=== PATIENT | male | born 1980 | race Caucasian/White ===

== ENCOUNTER 2017-02-22 16:35 | Emergency (ER) | payer OTHER ==
[2017-02-22 17:40] LABS: BASOPHIL# 0.1 X10e3 (0-0.3); BASOPHIL% 0.7 % (0-2.5); EOSINOPHIL# 0.2 X10e3 (0-0.7); EOSINOPHIL% 2.3 % (0.0-7.0); HEMATOCRIT 45.5 % (38.0-50.0); HEMOGLOBIN 15.2 gm/dL (13.0-16.0); LYMPHOCYTE# 1.6 X10e3 (1.0-3.5); LYMPHOCYTE% 21.7 % (17.0-45.0); MEAN CELL VOLUME 92.8 FL (83-96); MEAN CORPUSCULAR HGB CONC 33.4 g/dL (30-36); MEAN PLATELET VOLUME 9.3 FL (6.5-11.5); MONOCYTE# 0.4 X10e3 (0-1.0); MONOCYTE% 5.9 % (3.0-12.0); NEUTROPHIL# 5.2 X10e3 (1.5-7.1); NEUTROPHIL% 69.4 % (40-75); PLATELET COUNT 200 X10e3 (140-420); RED CELL DISTRIBUTION WIDTH 13.8 % (11.0-15.5); WHITE BLOOD COUNT 7.5 X10e3 (4.0-10.5)
[2017-02-22 17:44] LABS: DIFF IND NO
[2017-02-22 17:59] LABS: ALBUMIN SERUM 4.5 g/dL (3.5-5.0); ALKALINE PHOSPHATASE 49 U/L (32-92); ALT (SGPT) 38 U/L (10-40); AST (SGOT) 38 U/L (10-42); BILIRUBIN, DIRECT 0.1 mg/dL (0.0-0.2); BILIRUBIN,INDIRECT 0.8 mg/dL (0.0-0.9); BILIRUBIN,TOTAL 0.9 mg/dL (0.2-2.0); BLOOD UREA NITROGEN 9 mg/dL (9-23); CARBON DIOXIDE 25 mmol/L (22-31); CHLORIDE 105 mmol/L (100-111); CREATININE SERUM 0.9 mg/dL (0.6-1.4); GLUCOSE FASTING 96 mg/dL (70-110); POTASSIUM 3.8 mmol/L (3.5-5.1); PROTEIN TOTAL SERUM 7.2 g/dL (6.0-8.3); SALICYLATE <4.0 mg/dL; SODIUM 139 mmol/L (135-145)
[2017-02-22 18:00] LABS: ACETAMINOPHEN <10 ug/mL; ALCOHOL BLOOD <5 mg/dL ([, 0])
== END 2017-02-23 00:02 ==
LOC: CED 16:35
PROVIDERS: Emergency Medicine
DX: F32.9 Major depressive disorder, single episode, unspecified (principal); R45.851 Suicidal ideations
CPT/HCPCS: 36415; 80048; 80076; 85025; 99283; G0480

== ENCOUNTER 2017-02-23 00:40 | Inpatient (IN) | payer OTHER ==
--- NOTE | ~2017-02-23 | PN ---
Unit #: [id number] #: [id number] Patient: SHANNAN TEE [id number] [facility] [address] [place] [address] [id number] MR#: [id number] NAME: SHANNAN TEE ROOM: P256 Age: 36 Sex: M Admission Date: 02/23/2017 : 1980 Attending Physician: Rodriguez Corrigan M.D. Admitting Physician: Rodriguez Corrigan M.D. Primary Care Physician: Irving Stephenson PROGRESS NOTES DATE 02/24/2017 DISCUSSION The patient seems a bit brighter today but reports that he felt a bit disoriented and dizzy this morning after having taking trazodone for sleep last night. He is complaining of ongoing poor sleep. He reports some reduction in suicidal ideation when seen today and does express interest in the intensive outpatient treatment following discharge. We are watching for any signs of alcohol withdrawal at this point the patient declines recommendation that he move to as chemical dependence treatment unit but referral to a dual treatment program may be considered once the patient is discharged. Dictated by... Rodriguez Corrigan M.D. CB/agueda TD: 02/25/2017 01:24 JOB #: [id number] [facility] PROGRESS NOTES Page 1 of 1 X Rodriguez Corrigan MD X PROGRESS NOTE
--- NOTE | ~2017-02-23 | DS ---
Unit #: [id number] #: [id number] Patient: SHANNAN TEE [id number] [place] [address] [id number] MR#: [id number] NAME: SHANNAN TEE ROOM: [facility] Age: 36 Sex: M Admission Date: 02/23/2017 : 1980 Discharge Date: 02/26/2017 Attending Physician: Rodriguez Corrigan M.D. Primary Care Physician: Shira Noe M.D. DISCHARGE SUMMARY REASON FOR ADMISSION The patient is a 36-year-old white male, admitted to the [facility] unit with increasing depression and suicidal ideation. HOSPITAL COURSE The patient was admitted to the 2[facility] unit and started on Lexapro 10 mg daily. He tolerated the medication without complaint of poor sleep. Desyrel 50 mg at h.s. p.r.n. insomnia was added. The patient was watched for signs or symptoms of alcohol withdrawal and was in fact placed on routine detoxification protocol, though his detox was an uneventful one. He was active within the therapeutic milieu and by 02/26/2017 was in much brighter spirits. He and his had reconciled and he was agreeable with plan for followup in the dual track intensive outpatient program. Discharge was ordered. FINAL DIAGNOSES Major depressive disorder, single episode, moderate; cannabis use disorder; alcohol use disorder. DISPOSITION ON DISCHARGE The patient is discharged on the following medications; trazodone 50 mg at h.s. p.r.n. insomnia and Lexapro 10 mg daily for depression. DISCHARGE INSTRUCTIONS No dietary or physical restrictions were placed on the patient at the time of discharge. FOLLOWUP He will follow in the dual track intensive outpatient program provided by this facility. PROGNOSIS His prognosis is considered good, but will be darkened considerably should he continue to abuse alcohol. Dictated by... Rodriguez Corrigan M.D. CB/celeste TD: 02/27/2017 01:04 JOB #: [id number] Unit #: [id number] #: [id number] Patient: SHANNAN TEE DISCHARGE SUMMARY Page 1 of 1 X Rodriguez Corrigan MD DISCHARGE SUMMARY
--- NOTE | ~2017-02-23 | PN ---
Unit #: [id number] #: [id number] Patient: SHANNAN TEE [id number] [facility] [address] [place] [address] [id number] I MR#: [id number] NAME: SHANNAN TEE ROOM: P256 Age: 36 Sex: M Admission Date: 02/23/2017 : 1980 Attending Physician: Rodriguez Corrigan M.D. Admitting Physician: Rodriguez Corrigan M.D. Primary Care Physician: Irving Stephenson PROGRESS NOTES DATE 02/25/2017 DISCUSSION The patient continues to complain of some shakiness which he attributes to withdrawal from alcohol. He is otherwise in brighter spirits but states he continues to feel "not stable enough" to go home. We will watch for one more day. He states that he and his have gone a long way towards reconciliation. Dictated by... Rodriguez Corrigan M.D. CB/agueda TD: 02/25/2017 23:24 JOB #: [id number] [facility] PROGRESS NOTES Page 1 of 1 X Rodriguez Corrigan MD X PROGRESS NOTE
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
[2017-02-25 09:43] LABS: URINE APPEARANCE CLEAR; URINE BILIRUBIN NEG (NEG); URINE BLOOD NEG (NEG); URINE COLOR DK YELLOW; URINE GLUCOSE NEG (NEG); URINE KETONE NEG (NEG); URINE LEUKOCYTE ESTERASE NEG (NEG); URINE NITRATE NEG (NEG); URINE PROTEIN NEG (NEG); URINE SPECIFIC GRAVITY 1.017 (1.003-1.035); URINE UROBILINOGEN 0.2 MG/DL (NEG)
[2017-02-25 10:26] LABS: AMPHETAMINE NEG (NEG); BARBITURATES NEG (NEG); BENZODIAZEPINES POS (NEG); COCAINE NEG (NEG); MARIJUANA POS (NEG); OPIATES NEG (NEG); TRICYCLIC ANTIDEPRESSANTS NEG (NEG); U METHADONE NEG (NEG)
== END 2017-02-26 15:30 | disposition home or self-care (01) | DRG 885 ==
LOC: P2L 00:40
PROVIDERS: Specialist
DX: F32.1 Major depressive disorder, single episode, moderate (principal); R45.851 Suicidal ideations; F12.10 Cannabis abuse, uncomplicated; F10.10 Alcohol abuse, uncomplicated; Y90.0 Blood alcohol level of less than 20 mg/100 ml
CPT/HCPCS: 80307; 81003; 86592